=== PATIENT | female | born 1985 | race Caucasian/White ===

== ENCOUNTER 2017-06-03 09:05 | Emergency (ER) | payer MEDICAID ==
[~2017-06-03] VITALS: Ht 154.9 cm; Wt 54.5 kg
[~2017-06-03 09:05] MED LIST: ACET-784 PO; DEPOP150I IM; IBUP-2070 PO
[2017-06-03] MEDS ORDERED: MECLIZINE HCL 25 MG TABLET PO ONE (10:00)
[2017-06-03] MEDS ORDERED: SODIUM CHLORIDE 0.9% 1,000 ML IV ONE (10:00)
[2017-06-03] MEDS ORDERED: ONDANSETRON HCL 4 MG/2 ML VIAL IVP ONE (11:15)
[2017-06-03 11:32] LABS: APPEARANCE,URINE CLOUDY (CLEAR); GLUCOSE, URINE (UA) NEGATIVE (NEGATIVE); KETONES,URINE NEGATIVE (NEGATIVE); LEUKOCYTE ESTERASE ,URINE TRACE (NEGATIVE); OCCULT BLOOD,URINE MODERATE (NEGATIVE); PH,URINE 5.5 (5.0-8.0); PROTEIN,URINE NEGATIVE (NEGATIVE)
[2017-06-03 11:38] LABS: SQUAMOUS EPITHELIAL CELL,UR Few /LPF (None Seen)
[2017-06-03 11:51] VITALS: BP 112/53
== END 2017-06-03 12:16 | disposition home or self-care (01) ==
LOC: EMS 09:07
DX: N39.0 Urinary tract infection, site not specified (principal); R42 Dizziness and giddiness
CPT/HCPCS: 81001; 87086; 96374; 99284; J2405; J7030

== ENCOUNTER 2017-10-06 15:40 | Emergency (ER) | payer MEDICAID ==
[~2017-10-06] VITALS: Ht 154.9 cm; Wt 59.1 kg
[2017-10-06 16:16] LABS: INFLUENZA TYPE B NEGATIVE FOR TYPE B (NEGATIVE)
[2017-10-06] MEDS ORDERED: SODIUM CHLORIDE 0.9% 1,000 ML IV ONE ×2 (17:00→18:45)
[2017-10-06] MEDS ORDERED: ACETAMINOPHEN 325 MG TABLET PO ONE (17:00)
[2017-10-06 17:04] LABS: BASOPHILS % (AUTO) 1.5 % (0.0-2.0); EOSINOPHILS % (AUTO) 0.7 % (1.0-6.0); HEMATOCRIT 42.1 % (36-46); HEMOGLOBIN 14.6 g/dL (12.0-16.0); LYMPHOCYTES # (AUTO) 1.5 K/uL (1.0-4.8); LYMPHOCYTES % (AUTO) 21.7 % (22.0-44.0); MEAN CORPUSCULAR HGB CONC 34.7 G/dL (31.0-37.0); MEAN CORPUSCULAR VOLUME 92 fL (80-100); MONOCYTES # (AUTO) 0.7 K/uL (0.1-1.0); MONOCYTES % (AUTO) 9.4 % (2.0-9.0); NEUTROPHILS # (AUTO) 4.8 K/uL (1.8-7.7); NEUTROPHILS % (AUTO) 66.7 % (40.0-70.0); PLATELET COUNT (AUTO) 192 K/uL (150-450); RED BLOOD CELL COUNT(AUTO) 4.57 MIL/uL (4.00-5.20); RED CELL DISTRIBUTION WIDTH 11.9 % (11.5-14.5); WHITE BLOOD COUNT (AUTO) 7.2 K/uL (4.5-11.0)
[2017-10-06] MEDS: KETOROLAC TROMETHAMINE 30 MG/ML VIAL IVP ONE ×2 (17:11→17:23)
[2017-10-06] MEDS ORDERED: MECLIZINE HCL 25 MG TABLET PO ONE (17:15)
[2017-10-06 17:22] LABS: ANION GAP 11 mmol/L (8-16); CALCIUM, TOTAL 9.4 mg/dL (8.8-10.5); CARBON DIOXIDE 25 mmol/L (22-29); CHLORIDE 100 mmol/L (98-107); CREATININE 0.62 mg/dL (0.60-1.30); GLOMERULAR FILTR. RATE CALC > 60 mL/min (>60); SODIUM SERUM 136 mmol/L (136-145); UREA NITROGEN, BLOOD 10 mg/dL (7-18)
[2017-10-06 17:29] LABS: ALANINE AMINOTRANSFERASE 49 U/L (12-78); ALBUMIN 3.7 g/dL (3.4-5.0); ASPARTATE AMINOTRANSFERASE 36 U/L (15-37); BILIRUBIN,TOTAL 0.6 mg/dL (0.1-1.0); TOTAL PROTEIN, SERUM 7.8 g/dL (6.4-8.2)
[2017-10-06 18:17] LABS: APPEARANCE,URINE CLOUDY (CLEAR); GLUCOSE, URINE (UA) NEGATIVE (NEGATIVE); KETONES,URINE >=80 mg/dL (NEGATIVE); LEUKOCYTE ESTERASE ,URINE SMALL (NEGATIVE); OCCULT BLOOD,URINE MODERATE (NEGATIVE); PROTEIN,URINE TRACE (NEGATIVE)
[2017-10-06 18:19] LABS: ADD UA MICROSCOPIC YES
[2017-10-06 18:24] LABS: SQUAMOUS EPITHELIAL CELL,UR Many /LPF (None Seen)
[2017-10-06 19:49] VITALS: BP 108/60
== END 2017-10-06 20:36 | disposition home or self-care (01) ==
LOC: EMS 15:44
DX: O36.4XX0 Maternal care for intrauterine death, not applicable or unspecified (principal); J06.9 Acute upper respiratory infection, unspecified; Z3A.01 Less than 8 weeks gestation of pregnancy
CPT/HCPCS: 36415; 76801; 76817; 80053; 81001; 84702; 84703; 85025; 87086; 87804; 96360; 96361; 99285; J7030; J1885

== ENCOUNTER 2018-03-27 03:23 | Emergency (ER) | payer MEDICAID | END 2018-03-27 04:00 | disposition left against medical advice (07) | LOC: EMS 03:24 | DX: Z53.21 Procedure and treatment not carried out due to patient leaving prior to being seen by health care provider (principal) ==

== ENCOUNTER 2019-08-21 22:51 | Emergency (ER) | payer MEDICAID ==
[~2019-08-21] VITALS: Ht 152.4 cm; Wt 59.1 kg
[2019-08-22 00:19] LABS: BASOPHILS % (AUTO) 0.9 % (0.0-2.0); EOSINOPHILS % (AUTO) 3.2 % (1.0-6.0); HEMATOCRIT 40.5 % (36-46); HEMOGLOBIN 13.7 g/dL (12.0-16.0); LYMPHOCYTES # (AUTO) 3.7 K/uL (1.0-4.8); LYMPHOCYTES % (AUTO) 35.3 % (22.0-44.0); MEAN CORPUSCULAR HEMOGLOBIN 31.2 pg (26.0-34.0); MEAN CORPUSCULAR HGB CONC 33.8 G/dL (31.0-37.0); MEAN CORPUSCULAR VOLUME 93 fL (80-100); MONOCYTES % (AUTO) 9.1 % (2.0-9.0); NEUTROPHILS # (AUTO) 5.4 K/uL (1.8-7.7); NEUTROPHILS % (AUTO) 51.5 % (40.0-70.0); PLATELET COUNT (AUTO) 296 K/uL (150-450); RED BLOOD CELL COUNT(AUTO) 4.38 MIL/uL (4.00-5.20); RED CELL DISTRIBUTION WIDTH 12.3 % (11.5-14.5)
[2019-08-22 00:30] LABS: ANION GAP 10 mmol/L (8-16); CALCIUM, TOTAL 8.6 mg/dL (8.8-10.5); CARBON DIOXIDE 25 mmol/L (22-29); CHLORIDE 103 mmol/L (98-107); CREATININE 0.76 mg/dL (0.60-1.30); GLOMERULAR FILTR. RATE CALC > 60 mL/min (>60); GLUCOSE,RANDOM 95 mg/dL (70-110); POTASSIUM 3.4 mmol/L (3.5-5.1); SODIUM SERUM 138 mmol/L (136-145); UREA NITROGEN, BLOOD 17 mg/dL (7-18)
[2019-08-22 00:45] LABS: ALANINE AMINOTRANSFERASE 20 U/L (12-78); ALBUMIN 3.7 g/dL (3.4-5.0); ALKALINE PHOSPHATASE 78 U/L (46-116); ASPARTATE AMINOTRANSFERASE 13 U/L (15-37); BILIRUBIN,TOTAL 0.4 mg/dL (0.1-1.0); HCG,QUANTITATIVE < 1 mIU/mL (0-6); TOTAL PROTEIN, SERUM 7.5 g/dL (6.4-8.2)
[2019-08-22] MEDS ORDERED: MECLIZINE HCL 25 MG TABLET PO ONE (00:45)
[2019-08-22] MEDS ORDERED: ONDANSETRON HCL 4 MG/2 ML VIAL IVP ONE (00:45)
[2019-08-22] MEDS ORDERED: ACETAMINOPHEN 500 MG TABLET PO ONE (00:45)
[2019-08-22] MEDS ORDERED: SODIUM CHLORIDE 0.9% 2,000 ML IV ONE (00:45)
[2019-08-22 00:55] LABS: APPEARANCE,URINE CLOUDY (CLEAR); GLUCOSE, URINE (UA) NEGATIVE (NEGATIVE); KETONES,URINE TRACE mg/dL (NEGATIVE); LEUKOCYTE ESTERASE ,URINE SMALL (NEGATIVE); NITRATE,URINE POSITIVE (NEGATIVE); OCCULT BLOOD,URINE SMALL (NEGATIVE); PROTEIN,URINE NEGATIVE (NEGATIVE)
[2019-08-22 00:56] LABS: BILIRUBIN,URINE PRELIM. POSITIVE (NEGATIVE)
[2019-08-22 01:02] LABS: BACTERIA,URINE Moderate /HPF (None Seen); SQUAMOUS EPITHELIAL CELL,UR Many /LPF (None Seen)
[2019-08-22 02:25] VITALS: BP 116/71
== END 2019-08-22 02:49 | disposition home or self-care (01) ==
LOC: EMS 22:55
DX: N39.0 Urinary tract infection, site not specified (principal); E87.6 Hypokalemia; J06.9 Acute upper respiratory infection, unspecified; R42 Dizziness and giddiness; H92.09 Otalgia, unspecified ear
CPT/HCPCS: 36415; 80053; 81001; 84702; 85025; 87086; 96361; 96374; 99283; J2405; J7030

== ENCOUNTER 2021-07-03 10:57 | Emergency (ER) | payer MEDICAID ==
[~2021-07-03] VITALS: Ht 154.9 cm; Wt 54.5 kg
[2021-07-03] MEDS ORDERED: DICYCLOMINE HCL 20 MG TABLET PO ONE (13:45)
[2021-07-03] MEDS ORDERED: ONDANSETRON HCL 4 MG TABLET PO ONE (13:45)
[2021-07-03 13:52] LABS: BASOPHILS % (AUTO) 0.7 % (0.0-2.0); EOSINOPHILS % (AUTO) 4.5 % (1.0-6.0); HEMOGLOBIN 13.1 g/dL (12.0-16.0); LYMPHOCYTES # (AUTO) 1.1 K/uL (1.0-4.8); LYMPHOCYTES % (AUTO) 24.6 % (22.0-44.0); MEAN CORPUSCULAR HEMOGLOBIN 32.2 pg (26.0-34.0); MEAN CORPUSCULAR HGB CONC 33.7 G/dL (31.0-37.0); MEAN CORPUSCULAR VOLUME 95 fL (80-100); MONOCYTES # (AUTO) 0.7 K/uL (0.1-1.0); MONOCYTES % (AUTO) 16.1 % (2.0-9.0); NEUTROPHILS # (AUTO) 2.5 K/uL (1.8-7.7); NEUTROPHILS % (AUTO) 54.1 % (40.0-70.0); PLATELET COUNT (AUTO) 214 K/uL (150-450); RED BLOOD CELL COUNT(AUTO) 4.09 MIL/uL (4.00-5.20); RED CELL DISTRIBUTION WIDTH 12.6 % (11.5-14.5)
[2021-07-03 14:01] LABS: ANION GAP 5 mmol/L (8-16); CALCIUM, TOTAL 8.2 mg/dL (8.8-10.5); CARBON DIOXIDE 30 mmol/L (22-29); CHLORIDE 106 mmol/L (98-107); CREATININE 0.91 mg/dL (0.60-1.30); GLOMERULAR FILTR. RATE CALC > 60 mL/min (>60); GLUCOSE,RANDOM 92 mg/dL (70-110); POTASSIUM 4.1 mmol/L (3.5-5.1); SODIUM SERUM 141 mmol/L (136-145); UREA NITROGEN, BLOOD 7 mg/dL (7-18)
[2021-07-03 14:01] LABS: COVID AG,FIA SOURCE NASAL SWAB
[2021-07-03 14:13] LABS: ALANINE AMINOTRANSFERASE 25 U/L (12-78); ALBUMIN 3.3 g/dL (3.4-5.0); ALKALINE PHOSPHATASE 83 U/L (46-116); ASPARTATE AMINOTRANSFERASE 18 U/L (15-37); BILIRUBIN,TOTAL 0.5 mg/dL (0.1-1.0); HCG,QUANTITATIVE < 1 mIU/mL (0-6); LIPASE 56 U/L (73-393); TOTAL PROTEIN, SERUM 7.1 g/dL (6.4-8.2)
[2021-07-03 14:43] LABS: APPEARANCE,URINE CLOUDY (CLEAR); GLUCOSE, URINE (UA) NEGATIVE (NEGATIVE); KETONES,URINE NEGATIVE (NEGATIVE); LEUKOCYTE ESTERASE ,URINE TRACE (NEGATIVE); NITRATE,URINE NEGATIVE (NEGATIVE); OCCULT BLOOD,URINE LARGE (NEGATIVE); PROTEIN,URINE NEGATIVE (NEGATIVE)
[2021-07-03 14:48] LABS: BILIRUBIN,URINE PRELIM. POSITIVE (NEGATIVE)
[2021-07-03 15:09] LABS: YEAST,URINE Many /HPF (None Seen)
[2021-07-03 15:11] LABS: BACTERIA,URINE Few /HPF (None Seen)
[2021-07-03 15:41] VITALS: BP 118/61
== END 2021-07-03 15:49 | disposition home or self-care (01) ==
LOC: EMS 11:01
DX: K52.9 Noninfective gastroenteritis and colitis, unspecified (principal); B37.9 Candidiasis, unspecified; Z20.822 Contact with and (suspected) exposure to COVID-19
CPT/HCPCS: 36415; 80053; 81001; 83690; 84702; 85025; 87086; 87426; 99283; Q0162

== ENCOUNTER 2025-04-08 06:45 | Emergency (ER) | payer MEDICAID, OTHER ==
[~2025-04-08] VITALS: Ht 154.9 cm; Wt 59.1 kg
[2025-04-08 06:52] VITALS: BP 111/57; PULSE 94; RESP 16; TEMP 99; O2SAT 99
[2025-04-08] MEDS ORDERED: AMOX-457 PO (07:07)
[2025-04-08] MEDS ORDERED: ACET-2247 PO (07:07)
[2025-04-08] MEDS ORDERED: IBUP-1492 PO (07:07)
[2025-04-08] MEDS: AMOX TR/POT CLAV 875 MG/125 MG TABLET PO ONE (07:17)
[2025-04-08] MEDS: IBUPROFEN 600 MG TABLET PO ONE (07:17)
[2025-04-08 07:31] LABS: COVID AG,FIA SOURCE NASAL SWAB
[2025-04-08 08:07] LABS: RAPID GROUP A STREP NEGATIVE (NEGATIVE)
[2025-04-08 08:22] LABS: INFLUENZA TYPE A NEGATIVE FOR TYPE A (NEGATIVE); INFLUENZA TYPE B NEGATIVE FOR TYPE B (NEGATIVE)
[2025-04-08 08:23] LABS: SARS-COV2 (COVID) ANTIGEN,FIA Positive (Negative)
== END 2025-04-08 07:37 | disposition home or self-care (01) ==
LOC: EMS 06:47
DX: U07.1 COVID-19 (principal); H66.91 Otitis media, unspecified, right ear
CPT/HCPCS: 87430; 87804; 99283

== ENCOUNTER 2025-05-05 15:17 | Emergency (ER) | payer OTHER ==
[~2025-05-05] VITALS: Ht 165.1 cm; Wt 65.9 kg
[~2025-05-05 15:17] MED LIST changes: +ACET-2247 PO; -ACET-784 PO; +AMOX-457 PO; -DEPOP150I IM; +IBUP-1492 PO; -IBUP-2070 PO
[2025-05-05 15:26] VITALS: BP 108/52; PULSE 83; RESP 16; TEMP 98.1; O2SAT 98
[2025-05-05 15:40] LABS: APPEARANCE,URINE HAZY (CLEAR); GLUCOSE, URINE (UA) NEGATIVE (NEGATIVE); LEUKOCYTE ESTERASE ,URINE NEGATIVE (NEGATIVE); NITRATE,URINE NEGATIVE (NEGATIVE); OCCULT BLOOD,URINE MODERATE (NEGATIVE); SPECIFIC GRAVITIY, URINE 1.014 (1.003-1.030)
[2025-05-05 15:45] LABS: PLATELET COUNT (AUTO) 287 K/uL (150-450); RED BLOOD CELL COUNT(AUTO) 4.49 MIL/uL (4.00-5.20); RED CELL DISTRIBUTION WIDTH 12.7 % (11.5-14.5); WHITE BLOOD COUNT (AUTO) 10.2 K/uL (4.5-11.0)
[2025-05-05 15:57] LABS: CALCIUM, TOTAL 8.3 mg/dL (8.8-10.5); CREATININE 0.78 mg/dL (0.60-1.30); GLOMERULAR FILTR. RATE CALC > 60 mL/min (>60); GLUCOSE,RANDOM 94 mg/dL (70-110); SODIUM SERUM 140 mmol/L (136-145); UREA NITROGEN, BLOOD 5 mg/dL (7-18)
[2025-05-05 16:15] LABS: SQUAMOUS EPITHELIAL CELL,UR Moderate /LPF (None Seen)
[2025-05-05] MEDS: ONDANSETRON 4 MG TABLET PO ONE (18:06)
== END 2025-05-05 18:07 | disposition home or self-care (01) ==
LOC: EMS 15:17
DX: K52.9 Noninfective gastroenteritis and colitis, unspecified (principal); N89.8 Other specified noninflammatory disorders of vagina; Z79.899 Other long term (current) drug therapy
CPT/HCPCS: 99283; 80048; 81001; 84702; 85025; 36415; Q0162